=== PATIENT | male | born 1945 | race Caucasian/White ===

== ENCOUNTER → 2017-03-04 | Day surgery (SDC) | payer OTHER ==
[~2017-03-04] MED LIST: ALLOPURINOL300 MG PO; CARDURA8 MG PO; MERREM1 GM IV; NAPROSYN250 MG PO
[2017-03-04 08:13] LABS: HCT 46.8 % (42.0-52.0); HGB 15.8 g/dl (13.2-18.0); MCH 27.7 pg (25.0-31.0); MCHC 33.8 g/dL (32.0-36.0); MPV 9.5 fL (6.0-9.5); RBC 5.71 M/uL (4.70-6.00); RDW 15.7 % (11.5-14.0); WBC 8.1 K/uL (4.0-10.5)
[2017-03-04 08:30] LABS: ALBUMIN 4.6 g/dL (3.4-4.8); BILIRUBIN - TOTAL 0.7 mg/dL (0.1-1.0); CREATININE 1.2 mg/dL (0.7-1.2); GLOBULIN (CALCULATION) 3.6 g/dL (2.2-4.2); POTASSIUM 3.8 mmol/L (3.5-5.1); TOTAL PROTEIN 8.2 g/dL (6.4-8.3)
== END | disposition home or self-care (01) ==
LOC: FAS 07:07
PROVIDERS: Surgery
DX: Z12.11 Encounter for screening for malignant neoplasm of colon (principal); K57.30 Diverticulosis of large intestine without perforation or abscess without bleeding; M19.90 Unspecified osteoarthritis, unspecified site; I10 Essential (primary) hypertension; K21.9 Gastro-esophageal reflux disease without esophagitis; Z88.5 Allergy status to narcotic agent; Z79.899 Other long term (current) drug therapy; Z98.890 Other specified postprocedural states
CPT/HCPCS: 36415; 80053; J2704